=== PATIENT | male | born 1985 | race Two or more races ===

== ENCOUNTER 2020-02-20 23:54 | Inpatient (IN) | payer OTHER ==
[~2020-02-20] VITALS: Ht 172.7 cm; Wt 71.5 kg
[2020-02-21 01:53] LABS: Basophils # (auto) 0.1 10 ^3/uL (0-0.2); Basophils % (auto) 0.7 % (0.0-2.0); Eosinophils # (auto) 0.1 10 ^3/uL (0-0.8); Eosinophils % (auto) 1.1 % (0.0-7.0); Hematocrit 39.5 % (41.0-53.0); Hemoglobin 13.2 g/dL (13.5-17.5); Lymphocytes % (auto) 19.6 % (10.0-50.0); Mean Corpuscular Hemoglobin 31.1 pg (28.0-32.0); Mean Corpuscular Hgb Conc. 33.4 g/dL (32.0-36.0); Mean Corpuscular Volume 93.2 fL (80.0-100.0); Monocytes # (auto) 1.2 10 ^3/uL (0-1.3); Monocytes % (auto) 11.3 % (0.0-12.0); Neutrophils # (auto) 6.9 10 ^3/uL (1.6-8.6); Neutrophils % (auto) 67.3 % (37.0-80.0); Nucleated Red Blood Cells % 0.1 %; Platelet Count (auto) 234 10^3/uL (140-450); Red Blood Cells 4.24 10^6/uL (4.5-5.90); White Blood Cell 10.3 10^3/uL (4.4-10.8)
[2020-02-21 02:09] LABS: Albumin 3.4 g/dL (3.4-5.0); BUN/Creatinine Ratio 11.4; Calcium 8.6 mg/dL (8.5-10.1); Potassium 3.7 mmol/L (3.5-5.1)
[2020-02-21 02:12] LABS: Bilirubin, Total 0.7 mg/dL (0.2-1.0); Total Protein 6.8 g/dL (6.4-8.2)
[2020-02-21] MEDS ORDERED: methylPREDNISolone SOD SUCC 125 MG/2 ML VL IV ONE (02:15)
[2020-02-21] MEDS ORDERED: CEFTRIAXONE SODIUM 2 GM in D5W 5% 50 ML IV ONE (02:15)
[2020-02-21] MEDS ORDERED: cefTRIAXone SOD 1,000 MG VL ONE (02:34)
[2020-02-21] MEDS ORDERED: KETOROLAC TROMETH 30 MG/ML 1ML VIAL IV ONE (02:45)
[2020-02-21] MEDS ORDERED: VANCOMYCIN PER PHARMACY 0 MG IV SCH (04:45)
[2020-02-21] MEDS ORDERED: VANCOMYCIN 1GM/250ML 250 ML IV ONE (05:00)
[2020-02-21 06:12] LABS: Urine Bacteria NONE SEEN /hpf (None Seen); Urine Blood Negative /uL (Negative); Urine Mucus FEW (None Seen); Urine Specific Gravity 1.029 (1.001-1.035); Urine WBC 1 /hpf (0 - 3)
[2020-02-21] MEDS: HYDROcodone-ACET 10/325MG TAB PO PRN ×4 (11:55→20:12)
[2020-02-21] MEDS ORDERED: VANCOMYCIN 1GM/250ML 250 ML IV SCH (14:00)
[2020-02-21] MEDS: VANCOMYCIN 1GM/250ML 250 ML IV SCH (20:03)
[2020-02-21 21:00] VITALS: BP 125/85
--- NOTE | 2020-02-21 21:00 | NUR ---
MS admit from ER PINA JEREZ admitted to tele/MS after SBAR received. Patient oriented to Pily alejo RN, unit, room, bed, and unit policies regarding patient care and visiting hours. Patient weighed by bed scale and encouraged to call if they need something. All questions and concerns addressed, patient verbalized understanding. Note: Came per wheelchair awake alert oriented x 5,not in respiratory distress, placed in the bed comfortably, vital signs checked.
--- NOTE | 2020-02-21 21:40 | NUR ---
Picture taken of right knee, and dressing done.
[2020-02-21 22:00] VITALS: BP 125/85
[2020-02-22] MEDS: HYDROcodone-ACET 10/325MG TAB PO PRN ×6 (00:22→23:35)
--- NOTE | 2020-02-22 00:32 | NUR ---
There is 2 order of Vancomycin Through,02/22/20 at 1100 and 0500 clarified to outside pharmacist what time need suppose to be the vancomycin through, pharmacist Heriberto said it should be at 1100, not 0500.
[2020-02-22] MEDS ORDERED: OMEP20TA PO (02:23)
[2020-02-22] MEDS ORDERED: IBUP800T24 PO (02:23)
[2020-02-22] MEDS ORDERED: GABA600T PO (02:23)
[2020-02-22] MEDS: VANCOMYCIN 1GM/250ML 250 ML IV SCH ×3 (03:44→20:27)
[2020-02-22 05:00] VITALS: BP 116/73
--- NOTE | 2020-02-22 06:00 | NUR ---
IV insertion IV access obtained, via clean sterile technique by inserting 22 gauge catheter at left forearm after attempt by Rosemary Rico. IV secured properly. No trauma to site. Patient tolerated procedure well.
--- NOTE | 2020-02-22 07:30 | NUR ---
Opening Shift Note Assumed care of patient, awake and alert. No S/S of distress/SOB. Patient is stating 7/10 pain in facial area, will follow medication orders. Instructed on POC and to call for assist PRN, will continue to monitor for changes Q1hr and PRN. Patient has guards at bedside. Bed is locked and in lowest position. Call light within reach.
--- NOTE | 2020-02-22 07:35 | NUR ---
Report given to Rosemary Will, patient is resting no distress.
[2020-02-22 08:00] VITALS: BP 130/74
[2020-02-22 09:13] VITALS: BP 130/74
[2020-02-22 09:14] LABS: Basophils # (auto) 0 10 ^3/uL (0-0.2); Basophils % (auto) 0.3 % (0.0-2.0); Eosinophils # (auto) 0.1 10 ^3/uL (0-0.8); Eosinophils % (auto) 0.5 % (0.0-7.0); Hematocrit 39.9 % (41.0-53.0); Hemoglobin 13.3 g/dL (13.5-17.5); Lymphocytes # (auto) 2.2 10 ^3/uL (0.4-5.4); Lymphocytes % (auto) 20.1 % (10.0-50.0); Mean Corpuscular Hemoglobin 30.7 pg (28.0-32.0); Mean Corpuscular Hgb Conc. 33.3 g/dL (32.0-36.0); Mean Corpuscular Volume 92.1 fL (80.0-100.0); Monocytes # (auto) 0.8 10 ^3/uL (0-1.3); Neutrophils # (auto) 7.8 10 ^3/uL (1.6-8.6); Neutrophils % (auto) 72.1 % (37.0-80.0); Platelet Count (auto) 234 10^3/uL (140-450); Red Blood Cells 4.33 10^6/uL (4.5-5.90); Red Cell Distribution Width 12.7 % (11.8-14.3); White Blood Cell 10.8 10^3/uL (4.4-10.8)
[2020-02-22 09:35] LABS: BUN/Creatinine Ratio 13.1; Calcium 8.7 mg/dL (8.5-10.1); Potassium 3.2 mmol/L (3.5-5.1)
[2020-02-22 13:00] VITALS: BP 128/79
--- NOTE | 2020-02-22 13:49 | NUR ---
PAIN/SWELLING PATIENT STATES PAIN AND SWELLING TO LEFT EYE. WHEN ASSESSED LEFT EYE +SWELLING, REDNESS AND TENDER TO TOUCH. PATIENT GIVEN ICE PACK AND FOLLOWED MEDICATION ORDERS. SWELLING IS AFFECTING LEFT EYE OPENING. WILL PAGE DR. JAIMES TO NOTIFY OF INCREASED IN SWELLING. WILL CONTINUE TO MONITOR PATIENT.
[2020-02-22] MEDS: IBUPROFEN 800 MG TAB PO SCH ×2 (16:50→22:00)
[2020-02-22 17:00] VITALS: BP 129/82
--- NOTE | 2020-02-22 19:20 | NUR ---
OPENING SHIFT NOTE Assumed care of patient who is an inmate with guards bedside. Patient is alert and oriented currently on RA with no S/S of distress or SOB noted at this time. Patient has facial swelling to the left eye due to an ingrown hair abscess with no drainage at this time, patient is able to open eye and reports that the swelling has gone down. POC discussed with patient, all questions answered, patient verbalized understanding. Bed is locked, in lowest position, side rails up x2. Call light within reach patient is encouraged to call for assistance as needed. Will continue to monitor PRN/Q1hr.
[2020-02-22 23:21] VITALS: BP 107/55
[2020-02-23] MEDS: IBUPROFEN 800 MG TAB PO SCH ×3 (00:52→21:16)
[2020-02-23] MEDS: VANCOMYCIN 1GM/250ML 250 ML IV SCH ×4 (03:34→20:14)
[2020-02-23 05:12] VITALS: BP 107/65
--- NOTE | 2020-02-23 07:20 | NUR ---
CARE ENDORSED TO DAY SHIFT RN
--- NOTE | 2020-02-23 07:30 | NUR ---
Opening Shift Note Assumed care of patient, awake and alert. No S/S of distress/SOB or pain. Patient has left frontal and supraorbital swelling. Instructed on POC and to call for assist PRN, will continue to monitor for changes Q1hr and PRN. Bed is locked and in lowest position. Call light within reach.
[2020-02-23 09:00] VITALS: BP 120/83
[2020-02-23] MEDS: HYDROcodone-ACET 10/325MG TAB PO PRN ×3 (10:10→20:14)
[2020-02-23 12:58] VITALS: BP 130/78
[2020-02-23 16:51] VITALS: BP 111/69
--- NOTE | 2020-02-23 19:30 | NUR ---
Opening Shift Note Assumed care of patient, awake and alert. No S/S of distress/SOB. Patient c/o pain, will follow medication orders. Guards at bedside. Instructed on POC and to call for assist PRN, will continue to monitor for changes Q1hr and PRN. Bed is locked and in lowest position. Call light within reach.
[2020-02-23 22:00] VITALS: BP 107/67
[2020-02-24] MEDS: HYDROcodone-ACET 10/325MG TAB PO PRN ×5 (01:37→22:11)
--- NOTE | 2020-02-24 03:37 | NUR ---
ASSUMED CARE OF PATIENT PATIENT IS RESTING WITH EYES CLOSED, NO S/S OF DISTRESS OR SOB. BED LOCKED IN LOWEST POSITION, SIDE RAILS UP X2, CALL LIGHT WITHIN REACH, SAFETY PRECAUTIONS IN PLACE. GUARDS AT BEDSIDE. WILL CONTINUE TO MONITOR Q1HR AND PRN.
[2020-02-24] MEDS: VANCOMYCIN 1GM/250ML 250 ML IV SCH ×3 (04:26→19:56)
[2020-02-24 05:00] VITALS: BP 93/63
[2020-02-24] MEDS: IBUPROFEN 800 MG TAB PO SCH ×3 (05:35→21:00)
[2020-02-24 09:00] VITALS: BP 112/66
--- NOTE | 2020-02-24 11:00 | NUR ---
WOUND CARE NOTE: IN TO SEE PATIENT AT THIS TIME PER WOUND CARE CONSULT REQUEST. PATIENT ADMITTED TO [facility] WITH DIAGNOSIS OF RIGHT KNEE ABSCESS. CURRENT [facility] SCORE IS 21. PATIENT FULLY AMBULATORY. WOUND PHOTO TAKEN AT TIME OF ADMIT, BY BEDSIDE NURSE FOR REFERENCE. PATIENT HAS BEEN OBTAINING LOCALIZED SKIN INFECTIONS, PRESENTING TO [facility] WITH DRAINING WOUND TO RIGHT KNEE, UPPER LIP, INTACT NON DRAINING WOUND TO PERIORBITAL EYE. PATIENT RECEIVING IV ANTIBIOTICS. WOUND CULTURES ARE POSITIVE FOR STAPH. RIGHT KNEE WOUND IS DRAINING LIGHT AMOUNTS OF SEROSANGUINEOUS DRAINAGE. NO INDURATION NOTED, NO PAIN UPON PALPATION. APPLIED THERAHONEY, OPTIFOAM GENTLE DRESSING. PATIENT HAS WEEPING SKIN INFECTION TO UPPER LIP. REFUSES BANDAID TO THE AREA. WOUND IS DRAINING SCANT DRAINAGE. LEFT OPEN TO AIR, PERIORBITAL EYE WOUND LEFT OPEN TO AIR, IT IS NOT OPEN OR DRAINING. RECOMMEND: EOD/PRN DRESSING CHANGE WITH THERAHONEY, OPTIFOAM GENTLE DRESSING TO RIGHT KNEE WOUND, PRN BANDAID TO UPPER LIP WOUND IF PATIENT ALLOWS, SKIN/WOUND CARE PLAN, DIETARY CONSULT. WOUND CARE TEAM WILL CONTINUE TO MONITOR. Addendum: 02/24/20 at 1531 by Mayuri Burks RN Amended: Links added.
--- NOTE | 2020-02-24 12:05 | NUR ---
Nutrition Assessment Note please see attached link for complete assessment [employer] needs [id number] kcals (25-30 kcal/kgBW), Est Protein needs: 72-86 gms/day (1.0-1.2 gm/kgBW). Will continue to monitor and reassess prn. Addendum: 02/24/20 at [address] Amended: Links added.
[2020-02-24 13:00] VITALS: BP 98/66
--- NOTE | 2020-02-24 13:20 | NUR ---
IV removal IV DC'd with clean sterile technique, catheter fully intact. Pressure dressing applied to site. Patient tolerated well. NOTE: [right AC and left forearm painful and swollen]
--- NOTE | 2020-02-24 13:34 | NUR ---
IV insertion IV access obtained, via clean sterile technique by inserting 22 gauge catheter at right forearm after 1 attempt. IV secured properly. No trauma to site. Patient tolerated well.
[2020-02-24 16:05] VITALS: BP 105/59
--- NOTE | 2020-02-24 21:05 | NUR ---
Patient requested omeprazole 20 mg daily, and oxcarbazepine 900mg po bid for neuropathy as he takes it at the facility and home. Read back and spelled out the medications to patient and confirmed both medications. Spoke to MD Cox and notified MD Cox, patient requested omeprazole 20 mg daily, and oxcarbazepine 900mg po bid as he takes it at the facility and home, also read and spelled out each medication with dosage and frequency to MD Cox. MD Cox provided new orders: omeprazole 20 mg daily, and oxcarbazepine 900mg po bid. read back orders and verbally confirmed with MD Cox. Will carry out.
[2020-02-24 22:18] VITALS: BP 114/71
[2020-02-24 22:20] VITALS: BP 114/71
[2020-02-24] MEDS ORDERED: OXcarbazepine 300 MG TAB PO ONE (22:30)
[2020-02-25] MEDS: VANCOMYCIN 1GM/250ML 250 ML IV SCH ×3 (04:15→19:52)
[2020-02-25] MEDS: HYDROcodone-ACET 10/325MG TAB PO PRN ×4 (04:17→19:53)
[2020-02-25] MEDS: IBUPROFEN 800 MG TAB PO SCH ×3 (05:26→23:19)
[2020-02-25 05:54] VITALS: BP 112/59
--- NOTE | 2020-02-25 07:30 | NUR ---
Opening Shift Note Assumed care of patient, sleeping in bed. No S/S of distress/SOB. Two guards at bedside. Safety measures in place, bed in lowest position, call light within reach. Will continue to monitor.
[2020-02-25 09:00] VITALS: BP 89/54
[2020-02-25] MEDS: OXcarbazepine 300 MG TAB PO SCH ×2 (09:52→23:21)
[2020-02-25] MEDS: OMEPRAZOLE 20MG/10ML ORAL SUSP PO SCH (11:21)
[2020-02-25 13:00] VITALS: BP 106/62
--- NOTE | 2020-02-25 13:55 | NUR ---
WOUND DRESSING CHANGED WOUNDED DRESSING CHANGED TO RIGHT KNEE. SMALL AMOUNT OF SEROSANGUINEOUS DRAINAGE NOTED. APPLIED ÁNGEL PEREZ.
[2020-02-25 16:57] VITALS: BP 95/59
--- NOTE | 2020-02-25 19:04 | NUR ---
Closing Note Report given to shift supervisor RN. No signs or symptoms of distress noted at this time. Guards at bedside.
[2020-02-25 22:00] VITALS: BP 110/65
[2020-02-25] MEDS ORDERED: MIRTAZAPINE 30 MG TAB PO SCH (22:00)
[2020-02-26] MEDS: HYDROcodone-ACET 10/325MG TAB PO PRN ×3 (04:34→15:11)
[2020-02-26] MEDS: VANCOMYCIN 1GM/250ML 250 ML IV SCH ×2 (04:34→12:32)
[2020-02-26 05:00] VITALS: BP 100/67
[2020-02-26] MEDS: IBUPROFEN 800 MG TAB PO SCH ×2 (06:26→14:10)
--- NOTE | 2020-02-26 07:45 | NUR ---
Opening Note Received report from manufacturing shift supervisor RN. Patient is awake, alert and oriented x4. No signs or symptoms of distress noted at this time. Patient is on room air, respirations even and unlabored. Reviewed plan of care with patient, patient verbalized understanding. Bed in low and locked position, call light within reach. Will continue to monitor Q1 hour and PRN. Guards at bedside.
[2020-02-26 08:58] VITALS: BP 116/58
[2020-02-26] MEDS: OXcarbazepine 300 MG TAB PO SCH (09:43)
[2020-02-26] MEDS: OMEPRAZOLE 20MG/10ML ORAL SUSP PO SCH (09:43)
[2020-02-26 12:01] LABS: Albumin 2.9 g/dL (3.4-5.0); Calcium 8.7 mg/dL (8.5-10.1); Potassium 4.4 mmol/L (3.5-5.1)
[2020-02-26 12:03] LABS: BUN/Creatinine Ratio 15.9; Phosphorus 3.1 mg/dL (2.5-4.90)
[2020-02-26 12:54] VITALS: BP 104/62
--- NOTE | 2020-02-26 13:55 | NUR ---
Dr. Cox at bedside MD discussing plan of care with patient and this RN. Patient to discharge today. Will continue to monitor Q1 hour and PRN.
[2020-02-26] MEDS ORDERED: CIPR500T4 PO (14:11)
[2020-02-26] MEDS ORDERED: AMOX500T86 PO (14:16)
[2020-02-26 14:38] VITALS: BP 116/58
--- NOTE | 2020-02-26 15:24 | NUR ---
Wound care completed as ordered
--- NOTE | 2020-02-26 16:11 | NUR ---
Discharge Discharge instructions given as ordered. Encourage to follow up with shelter doctor as instructed. All questions and concerns addressed. Patient verbalized understanding. Medication reconciliation form completed and copy given to patient and guards. IV catheter removed, catheter intact, pressure dressing applied. No signs or symptoms of distress noted at this time.
[2020-02-27] MEDS ORDERED: VANCOMYCIN 1GM/250ML 250 ML IV SCH (04:00)
== END 2020-02-26 16:40 | DRG 158 ==
LOC: ER 23:59 → EEVIPCON 23:59 → OVERFLOW 02-21 → WEST WING 02-21 21:00
PROVIDERS: ADMIT Internal Medicine; ATTEND Internal Medicine
DX: K13.0 Diseases of lips (principal); L02.415 Cutaneous abscess of right lower limb; L02.01 Cutaneous abscess of face; G62.9 Polyneuropathy, unspecified; K21.9 Gastro-esophageal reflux disease without esophagitis; J32.9 Chronic sinusitis, unspecified; Z20.828 Contact with and (suspected) exposure to other viral communicable diseases
CPT/HCPCS: 36415; 70486; 80048; 80053; 80069; 80202; 81001; 82565; 85025; 87040; 87077; 87081; 87186; 87205; 87426; 96365; 96366; 96367; 96375; G0378; J0696; J1885; J7060